=== PATIENT | female | born 1955 | race Caucasian/White ===

== ENCOUNTER → 2018-07-02 10:29 | Outpatient (CLI) | payer OTHER, SELFPAY ==
--- NOTE | 2018-07-02 11:35 | BRBX_PTH ---
PATIENT: OLGA BARRAGAN LOC: [facility] U#:[id number] AGE/SX: 69/F ROOM: RE07/02/[address]: Dr. Nicolas Burgess MD : [id number] BED: DIS: SPEC #: [id number] RECD: 07/02/18 12:07 STATUS: ALEJANDRO JOSE L #: [id number] [place]: 07/02/18 11:[address]: Nicolas Burgess DEPT: SURGICAL PATHOLOGY RECD BY: Nicolas Hughes ENTERED: 07/02/18 12:59 SP TYPE: BREAST BX OTHR DR: Dr. Shawn Rosa DO Tissues: Right breast, NOS Procedures: Surgery Specimen Level IV HEADER OPERATION: Right stereotactic breast biopsy PRE-OP DIAGNOSIS: Right breast upper outer quadrant microcalcifications TISSUE SUBMITTED: Right breast core tissue ISCHEMIC TIME: 2 minutes FIXATION TIME: 8 hours MICROSCOPIC DIAGNOSIS Right breast, upper outer quadrant microcalcifications, stereotactic core biopsy: Hyalinized fibroadenoma with focal calcifications. Negative for atypia or malignancy. HUGO:sami 07/03/18 COMMENT Correlation with clinical, radiologic findings and appropriate follow up are necessary. Please make reference to previous specimen ([id number]) left breast, core biopsies with diagnosis of fibroadenoma with hyalinization and focal calcification. MICROSCOPIC DESCRIPTION Slides are reviewed. GROSS DESCRIPTION Received is one container labeled with the patient's name and not further designated. The specimen consists of multiple elongated fragments of rosenberg-yellow fibroadipose tissue mixed with blood clot that in aggregate measure 6 x 3 x 0.3 cm. The entire specimen is submitted in three cassettes. / HUGO:sami 07/02/18 TC:1 CPT: 90056
--- NOTE | 2018-07-02 11:41 | OP.PCM_ITS ---
Report of Operation Date of Procedure: 07/02/18 Pre-Operative Diagnosis: right 11 oclock breast microcalcifications Post-Operative Diagnosis: right 11 oclock breast microcalcifications - successful biopsy Surgery/Procedure Performed:: right stereotactic vaccuum assisted core biopsy, specimen radiograph, marker placement director of corporate real estate: None Type of Anesthesia:: Local Specimen's removed: right breast Description of Procedure: The patient was brought to the stereotactic suite and informed of the plan course of events. The right breast was positioned in the true lateral to medial approach on the [place] stereotactic table. Mammographic image demonstrated the area of abnormality to be located in the center of the radiograph. Stereotactic images were then obtained which demonstrated good positioning of the abnormality for biopsy with good stroke shamir parameters. The breast was cleaned with Betadine area did one percent lidocaine was used to anesthetize the skin and a small stab incision made. An 8-gauge mammotome needle was placed into the pre-fire position. Stereotactic images demonstrated good positioning around the planned biopsy site. Local anesthetic injected deeply in the breast. The needle was deployed. Post deployment images demonstrated good positioning of the planned biopsy site. Multiple vacuum- assisted samples were obtained and [id number] fashion. Specimen radiograph demonstrated micro-calcifications in the sample. A gel marker clip was deployed. Post biopsy images demonstrated good position of the clip relative the biopsy cavity. The breast was removed from compression. Steri- Strips and a dressing applied. Post procedure mammogram images were obtained.
== END ==
PROVIDERS: Family Provider Family Medicine; PCP Family Medicine; Visit Provider Surgery
DX: D24.1 Benign neoplasm of right breast (principal); R92.0 Mammographic microcalcification found on diagnostic imaging of breast
CPT/HCPCS: 19081; 88305; J7050; A4648